=== PATIENT | male | born 1955 | race Caucasian/White ===

== ENCOUNTER → 2025-02-19 | Outpatient (CLI) | payer OTHER ==
[2025-02-19 22:54] LABS: CHOL/HDL RATIO 3.7; Cholesterol 216 mg/dL (50-200); HDL Cholesterol 59 mg/dL (>39); LDL/HDL RATIO 2.5; Low Density Lipoprotein Chol 148 mg/dL (0-110); Thyroid Stimulating Hormone 0.398 uIU/mL (0.360-4.800); Triglycerides 46 mg/dL (30-160); Very Low Density Lipoprot Chol 9 mg/dL (6-32)
== END ==
LOC: LAB 14:44 → LAB SHORT 14:44
PROVIDERS: Student in an Organized Health Care Education/Training Program
DX: E03.9 Hypothyroidism, unspecified (principal); E78.5 Hyperlipidemia, unspecified
CPT/HCPCS: 80061; 84439; 84443